=== PATIENT | female | born 1970 | race Caucasian/White ===

== ENCOUNTER 2018-08-29 08:43 | Inpatient (IN) | payer MEDICARE, BC ==
[2018-08-29] MEDS ORDERED: Acetaminophen 500 MG Tab PO ONE (10:00)
[2018-08-29] MEDS ORDERED: Gabapentin 300 MG Cap PO ONE (10:00)
[2018-08-29] MEDS ORDERED: Meropenem 500 MG SDV ONE (10:06)
[2018-08-29] MEDS ORDERED: Bupivacaine 0.5%/EPINEPHrine 1:200,000 50 ML MDV ONE (10:07)
[2018-08-29] MEDS ORDERED: Dextrose 5%-Lactated Ringers 1,000 ML IV SCH ×2 (10:30→17:00)
[2018-08-29] MEDS ORDERED: fentaNYL 250 MCG/5 ML SDV ONE (11:08)
[2018-08-29] MEDS ORDERED: Propofol 200 MG/20 ML SDV ONE (11:09)
[2018-08-29] MEDS ORDERED: Rocuronium 50 MG/5 ML Vial ONE (11:09)
[2018-08-29] MEDS ORDERED: Glycopyrrolate 0.2 MG/ML 5 ML MDV ONE (11:09)
[2018-08-29] MEDS ORDERED: Succinylcholine 200 MG/10 ML MDV ONE (11:09)
[2018-08-29] MEDS ORDERED: Ondansetron 4 MG/2 ML SDV ONE (11:09)
[2018-08-29] MEDS ORDERED: Dexamethasone 4 MG/ML SDV ONE (11:09)
[2018-08-29] MEDS ORDERED: Neostigmine Methylsulfate 1 MG/ML 5 ML Syringe ONE (11:09)
[2018-08-29] MEDS ORDERED: Levofloxacin/Dextrose 5%-Water 500 MG in Premix Bag 1 BAG IV ONE (11:30)
[2018-08-29] MEDS ORDERED: Ketamine 500 MG/5 ML MDV IV SCH (13:00)
[2018-08-29] MEDS ORDERED: Ketamine 50 MG in Sodium Chloride 0.9% 49.5 ML IV SCH (13:00)
[2018-08-29] MEDS ORDERED: Ropivacaine 38 ML, Dexamethasone 8 MG, EPINEPHrine 0.4 MG, Sodium Chloride 0.9% 39.6 ML NERVRT SCH ×4 (13:00)
[2018-08-29] MEDS ORDERED: Scopolamine 1.5 MG Transdermal Patch TRDERM SCH (13:30)
[2018-08-29] MEDS ORDERED: Levofloxacin 500 MG/20 ML SDV ONE (14:46)
[2018-08-29] MEDS ORDERED: Lactated Ringers 2,000 ML ONE (15:04)
[2018-08-29] MEDS ORDERED: Morphine PF 150 MG/30 ML PCA Syringe IV PRN (15:34)
[2018-08-29] MEDS ORDERED: Naloxone 0.4 MG/ML SDV IVPUSH PRN (15:34)
[2018-08-29] MEDS ORDERED: hydrOXYzine HCl 100 MG/2 ML SDV IM PRN ×2 (16:20→16:50)
[2018-08-29] MEDS ORDERED: 50% Dextrose in Water 50 ML Syringe IVPUSH PRN (16:50)
[2018-08-29] MEDS ORDERED: Labetalol 20 MG/4 ML Syringe IVPUSH PRN (16:50)
[2018-08-29] MEDS ORDERED: Glucagon,Human Recombinant 1 MG Vial IM PRN (16:50)
[2018-08-29] MEDS ORDERED: Metoclopramide 10 MG/2 ML SDV IVPUSH PRN (16:50)
[2018-08-29] MEDS ORDERED: Albuterol/Ipratropium 3.0-0.5 MG/3 ML Neb Soln INH PRN (16:50)
[2018-08-29] MEDS ORDERED: INSULIN PUMP SUBCUT SCH (17:00)
[2018-08-29] MEDS: Ondansetron 4 MG/2 ML SDV IVPUSH PRN (17:17)
[2018-08-29] MEDS: MVI, Adult with Vitamin K 10 ML, Thiamine 100 MG, Chromium/Copper/Mang/Selen/Zn 1 ML in... IV SCH ×4 (17:46)
[2018-08-29] MEDS: Pantoprazole 40 MG Vial IVPUSH SCH (17:46)
[2018-08-29] MEDS: Acetaminophen 325 MG Tab PO SCH ×2 (17:47→18:56)
[2018-08-29] MEDS: Heparin Sodium 5,000 Units/ML Vial SUBCUT SCH (20:48)
[2018-08-29] MEDS: Gabapentin 400 MG Cap PO SCH (20:49)
[2018-08-29] MEDS: Fluticasone-Salmeterol 232-14 MCG Powder Inhalent INH SCH (20:50)
[2018-08-29] MEDS: Acetaminophen Soln 650 MG/20.3 ML UD Cup PO SCH (20:57)
[2018-08-29] MEDS: Albuterol/Ipratropium 3.0-0.5 MG/3 ML Neb Soln INH SCH (20:58)
[2018-08-30] MEDS: Acetaminophen Soln 650 MG/20.3 ML UD Cup PO SCH ×4 (02:36→20:06)
[2018-08-30] MEDS ORDERED: Iohexol 647 MG/ML 50 ML SDV PO STA (02:48)
--- NOTE | 2018-08-30 04:10 | CRLCR ---
INDICATION: REVISON OF RNY BOWEL RESECTION HERNIA REPAIR INDICATION: Revision of Elma-en-Y, bowel resection, hernia repair TECHNIQUE: Abdomen modified upper GI three views, 2:59 a.m. and 3:17 a.m., COMPARISON: None FINDINGS: Oral contrast identified within the gastric pouch and proximal jejunum with no evidence of leakage. Contrast is noted to transit into distal jejunal and ileal bowel loops. IMPRESSION: Transit of oral contrast through the gastric pouch into distal jejunal and proximal ileal bowel loops with no evidence of leakage. Dictated by Luigi Woodward MD @ 08/30/2018 4:09:20 AM Dictated by: Luigi Woodward MD @ 08/30/2018 04:09:28 (Electronically Signed)
[2018-08-30] MEDS: Albuterol/Ipratropium 3.0-0.5 MG/3 ML Neb Soln INH SCH ×4 (07:29→20:12)
[2018-08-30] MEDS: Fluticasone-Salmeterol 232-14 MCG Powder Inhalent INH SCH ×2 (07:30→20:13)
[2018-08-30] MEDS: SCOPOLAMINE PATCH CHECK TOP SCH (08:33)
[2018-08-30] MEDS: Gabapentin 400 MG Cap PO SCH ×3 (08:33→20:11)
[2018-08-30] MEDS: Heparin Sodium 5,000 Units/ML Vial SUBCUT SCH ×2 (08:35→20:05)
[2018-08-30] MEDS ORDERED: Lactated Ringers 1,000 ML IV SCH (09:00)
[2018-08-30] MEDS: Aspirin 81 MG Tab.Chew PO SCH (09:48)
[2018-08-30] MEDS: Bisacodyl 5 MG Tab PO SCH ×2 (09:48→20:09)
[2018-08-30] MEDS: Propranolol 60 MG Cap.ER PO SCH (09:49)
[2018-08-30] MEDS: rOPINIRole 0.5 MG Tab PO SCH ×2 (09:56→20:14)
[2018-08-30] MEDS ORDERED: Topiramate 100 MG Tab PO SCH (10:00)
[2018-08-30] MEDS: diphenhydrAMINE 50 MG/ML SDV IVPUSH PRN (10:42)
[2018-08-30] MEDS: Levofloxacin/Dextrose 5%-Water 500 MG in Premix Bag 1 BAG IV SCH (13:34)
[2018-08-30] MEDS: Ondansetron 4 MG/2 ML SDV IVPUSH PRN (14:59)
[2018-08-30] MEDS: Pantoprazole 40 MG Vial IVPUSH SCH (16:42)
[2018-08-30] MEDS: MVI, Adult with Vitamin K 10 ML, Thiamine 100 MG, Chromium/Copper/Mang/Selen/Zn 1 ML in... IV SCH ×4 (17:43)
[2018-08-30] MEDS: Pravastatin 20 MG Tab PO SCH (20:11)
[2018-08-30] MEDS: Melatonin 3 MG Tab PO SCH (20:11)
[2018-08-30] MEDS: Mirtazapine 15 MG Tab PO SCH (20:13)
[2018-08-30] MEDS: Topiramate 100 MG Tab PO SCH (21:42)
[2018-08-31] MEDS: Acetaminophen Soln 650 MG/20.3 ML UD Cup PO SCH ×4 (02:54→19:45)
[2018-08-31] MEDS: diphenhydrAMINE 50 MG/ML SDV IVPUSH PRN ×2 (02:54→10:25)
[2018-08-31] MEDS: Heparin Sodium 5,000 Units/ML Vial SUBCUT SCH ×2 (07:32→19:45)
[2018-08-31] MEDS: Albuterol/Ipratropium 3.0-0.5 MG/3 ML Neb Soln INH SCH ×4 (07:35→20:55)
[2018-08-31] MEDS: Fluticasone-Salmeterol 232-14 MCG Powder Inhalent INH SCH ×2 (07:35→20:54)
--- NOTE | 2018-08-31 07:45 | PN ---
DATE OF SERVICE: 08/30/2018 The patient has been afebrile with stable vital signs. Blood sugars are running right around 200 and will switch her IV over to plain LR and decrease the rate to 100 mL an hour. Oral intake was fairly good. Will go to step 3 diet, have her decrease bowel stimulation, and restart some of her pertinent oral medication. Will leave the CASH SPECIALIST going for today. Gabino Jeffries MD /[id number]
[2018-08-31] MEDS: Ondansetron 4 MG/2 ML SDV IVPUSH PRN (08:19)
[2018-08-31] MEDS: rOPINIRole 0.5 MG Tab PO SCH ×2 (08:51→20:55)
[2018-08-31] MEDS: Propranolol 60 MG Cap.ER PO SCH (08:53)
[2018-08-31] MEDS: Topiramate 100 MG Tab PO SCH ×2 (08:53→20:53)
[2018-08-31] MEDS: Gabapentin 400 MG Cap PO SCH ×3 (08:54→20:53)
[2018-08-31] MEDS: Aspirin 81 MG Tab.Chew PO SCH (08:54)
[2018-08-31] MEDS: SCOPOLAMINE PATCH CHECK TOP SCH (08:56)
[2018-08-31] MEDS: Bisacodyl 5 MG Tab PO SCH ×2 (08:56→20:54)
[2018-08-31] MEDS ORDERED: Cyanocobalamin (Vitamin B12) 1,000 MCG/ML SDV IM ONE (09:00)
[2018-08-31] MEDS: oxyCODONE 5 MG Tab PO PRN ×4 (09:20→23:35)
[2018-08-31] MEDS: Levofloxacin/Dextrose 5%-Water 500 MG in Premix Bag 1 BAG IV SCH (13:29)
[2018-08-31] MEDS ORDERED: diphenhydrAMINE 25 MG Cap PO PRN (15:15)
[2018-08-31] MEDS ORDERED: Pantoprazole 40 MG Tab.CR PO SCH (16:30)
--- NOTE | 2018-08-31 16:36 | PN ---
DATE OF SERVICE: 08/31/2018 SUBJECTIVE: Claudia is postoperative day #2, her pain has been controlled. She is managing her own blood sugar. She has been up ambulating. Vital signs have been stable. Oral intake was 2660. Urine output was 1100. She has had 100% of breakfast lunch and dinner. REVIEW OF SYSTEMS: Remainder of review of systems negative for any pertinent positives and negatives. OBJECTIVE: GENERAL: Claudia is a pleasant 47-year-old female, alert, orientated, color pale. VITAL SIGNS: TPR 98.5, 81, 15, blood pressure 95/60. HEENT: Negative. NECK: Supple. HEART: Regular rate and rhythm. LUNGS: Clear. ABDOMEN: Dressings dry and intact. Abdominal binder is on. EXTREMITIES: Without peripheral edema. ASSESSMENT: Exploratory laparotomy with: 1. Revision of Elma-en-Y gastric bypass surgery (jejunojejunostomy). 2. Rectal sigmoid colon resection. 3. Repair of incarcerated incisional hernia for chronic small bowel intussusception at the jejunojejunostomy, intermittent sigmoid volvulus, and incarcerated incisional hernia. Date of surgery is 08/29/2018. Surgeon is Gabino Jeffries MD. PLAN: 1. Discontinue MACHINE SHORTHAND REPORTER and continuous pulse ox. 2. Oxycodone 5 mg every 6 hours p.r.n. pain. 3. Saline lock IV discontinue if infiltrates. 4. Dressing off may shower. 5. Work on good pulmonary function. 6. We will evaluate p.r.n. or in a.m. Sheridan Seymour PA-C /[id number]
[2018-08-31] MEDS: Promethazine 25 MG Tab PO SCH ×2 (16:46→19:44)
[2018-08-31] MEDS: Pantoprazole 40 MG Delayed-Release Granules 1 Packet PO SCH (16:46)
[2018-08-31] MEDS: Mirtazapine 15 MG Tab PO SCH (20:53)
[2018-08-31] MEDS: Melatonin 3 MG Tab PO SCH (20:53)
[2018-08-31] MEDS: Pravastatin 20 MG Tab PO SCH (20:55)
[2018-09-01] MEDS: Acetaminophen Soln 650 MG/20.3 ML UD Cup PO SCH ×4 (01:11→20:40)
[2018-09-01] MEDS: oxyCODONE 5 MG Tab PO PRN ×5 (04:05→21:10)
[2018-09-01] MEDS: Albuterol/Ipratropium 3.0-0.5 MG/3 ML Neb Soln INH SCH ×3 (07:12→14:32)
[2018-09-01] MEDS: Promethazine 25 MG Tab PO SCH ×4 (07:40→20:40)
[2018-09-01] MEDS: Heparin Sodium 5,000 Units/ML Vial SUBCUT SCH ×2 (07:48→20:40)
[2018-09-01] MEDS ORDERED: Polyethylene Glycol 3350 Powder 119 GM Bottle PO ONE (08:30)
[2018-09-01] MEDS: Fluticasone-Salmeterol 232-14 MCG Powder Inhalent INH SCH (09:16)
[2018-09-01] MEDS: Aspirin 81 MG Tab.Chew PO SCH (09:28)
[2018-09-01] MEDS: Bisacodyl 5 MG Tab PO SCH (09:29)
[2018-09-01] MEDS: Gabapentin 400 MG Cap PO SCH ×2 (09:30→13:33)
[2018-09-01] MEDS: rOPINIRole 0.5 MG Tab PO SCH (09:31)
[2018-09-01] MEDS: Topiramate 100 MG Tab PO SCH (09:32)
[2018-09-01] MEDS: Propranolol 60 MG Cap.ER PO SCH (09:33)
[2018-09-01] MEDS: Ondansetron 4 MG Tab.DIS PO PRN ×2 (10:17→20:38)
--- NOTE | 2018-09-01 11:37 | PN ---
DATE OF SERVICE: 09/01/2018 SUBJECTIVE: Claudia has been up ambulating. Vital signs have been stable. Pain has been controlled. Oral intake 2260 and urinary output is 1100. She has been managing her blood sugars with a sensor and her blood sugars average between 110 and 130. She continues to have the insulin pump. REVIEW OF SYSTEMS: Remainder of review of systems negative for any pertinent positives and negatives. OBJECTIVE: GENERAL: Claudia Cruz is a pleasant 47-year-old female. VITAL SIGNS: TPR 97.4, 79, 16. Blood pressure is 101/71. HEENT: Negative. NECK: Supple. HEART: Regular rate and rhythm. LUNGS: Clear. ABDOMEN: Dressings dry and intact. Abdominal binder is on. EXTREMITIES: Without peripheral edema. ASSESSMENT: Exploratory laparotomy with: 1. Revision of the Elma-en-Y gastric bypass surgery (jejunojejunostomy). 2. Rectosigmoid colon resection. 3. Repair of incarcerated incisional hernia for chronic small bowel intussusception at the jejunojejunostomy, intermittent sigmoid volvulus, and incarcerated incisional hernia. Date of surgery 08/29/2018. Surgeon, Gabino Jeffries MD. PLAN: 1. Discontinue Aquacel dressing. 2. MiraLAX 119 g in either Crystal Light or her beverage of choice sugar free. 3. We will evaluate p.r.n. or in a.m. Sheridan Seymour PA-C /[id number]
[2018-09-01] MEDS: Pantoprazole 40 MG Delayed-Release Granules 1 Packet PO SCH (16:34)
[2018-09-01] MEDS ORDERED: Lactulose Soln 10 GM/15 ML 15 ML UD Cup PO ONE (21:08)
[2018-09-01] MEDS ORDERED: Bisacodyl 10 MG Supp RECTAL PRN (21:09)
[2018-09-01] MEDS ORDERED: Sodium Phosphate,Monobasic/Sodium Phosphate,Dibasic Enema 133 ML Bottle RECTAL PRN (21:09)
[2018-09-02] MEDS: Ondansetron 4 MG Tab.DIS PO PRN ×2 (00:35→15:49)
[2018-09-02] MEDS: Albuterol/Ipratropium 3.0-0.5 MG/3 ML Neb Soln INH SCH ×5 (01:01→20:23)
[2018-09-02] MEDS: Bisacodyl 5 MG Tab PO SCH ×3 (01:01→20:18)
[2018-09-02] MEDS: Fluticasone-Salmeterol 232-14 MCG Powder Inhalent INH SCH ×3 (01:02→20:18)
[2018-09-02] MEDS: Mirtazapine 15 MG Tab PO SCH ×2 (01:03→20:17)
[2018-09-02] MEDS: rOPINIRole 0.5 MG Tab PO SCH ×3 (01:03→20:17)
[2018-09-02] MEDS: Gabapentin 400 MG Cap PO SCH ×4 (01:03→20:17)
[2018-09-02] MEDS: Melatonin 3 MG Tab PO SCH ×2 (01:03→20:17)
[2018-09-02] MEDS: Pravastatin 20 MG Tab PO SCH ×2 (01:04→20:17)
[2018-09-02] MEDS: Topiramate 100 MG Tab PO SCH ×3 (01:05→20:17)
[2018-09-02] MEDS: oxyCODONE 5 MG Tab PO PRN ×4 (01:05→15:51)
[2018-09-02] MEDS: Acetaminophen Soln 650 MG/20.3 ML UD Cup PO SCH ×4 (04:31→20:17)
[2018-09-02] MEDS: Promethazine 25 MG Tab PO SCH ×4 (07:27→20:17)
[2018-09-02] MEDS: Heparin Sodium 5,000 Units/ML Vial SUBCUT SCH ×2 (08:12→20:17)
[2018-09-02] MEDS: Lubiprostone 24 MCG Cap PO SCH ×2 (09:35→18:05)
[2018-09-02] MEDS: Aspirin 81 MG Tab.Chew PO SCH (09:35)
[2018-09-02] MEDS: Propranolol 60 MG Cap.ER PO SCH (09:36)
--- NOTE | 2018-09-02 09:55 | PN ---
CORRECTED DOS 09/06/2018 DATE OF SERVICE: 09/02/2018 SUBJECTIVE: Claudia is postop day 4. She did have a bowel movement last evening, but feels like she has not completely emptied out, does deal with chronic constipation. Vital signs have been stable. Pain has been managed. Activity has been good and oral intake 1860, urine output is 1200. Blood sugars she has been managing her own, have been ranging under 200, which she states is where she normally runs. She does have an insulin pump. OBJECTIVE: GENERAL: Claudia Cruz is a 47-year-old female. Color pale. Alert, orientated, talkative. VITAL SIGNS: TPR 97.3, 71, 18, blood pressure is 102/69. HEENT: Negative. NECK: Supple. HEART: Regular rate and rhythm. LUNGS: Clear. ABDOMEN: Stapled incision looks good. There is no redness or drainage. Abdominal binder is on. EXTREMITIES: Without peripheral edema. ASSESSMENT: Exploratory laparotomy with: 1. Revision of Elma-en-Y gastric bypass surgery (jejunostomy). 2. Rectosigmoid colon resection. 3. Repair of incarcerated incisional hernia for chronic small bowel intussusception of jejunostomy, intermittent sigmoid volvulus and incarcerated incisional hernia. Date of surgery, 08/29/2018. Surgeon, Gabino Jeffries MD. PLAN: 1. Amitiza 24 mcg p.o. b.i.d. 2. Communication order to check with insurance company to see if this medication is covered by her insurance plan and the co-pay is affordable. Continue to work on good pulmonary toilet. We will evaluate p.r.n. or in a.m. Sheridan Seymour PA-C /[id number]
[2018-09-02] MEDS: Pantoprazole 40 MG Delayed-Release Granules 1 Packet PO SCH (17:59)
[2018-09-03] MEDS: oxyCODONE 5 MG Tab PO PRN ×2 (00:07→07:52)
[2018-09-03] MEDS: Acetaminophen Soln 650 MG/20.3 ML UD Cup PO SCH ×2 (03:05→07:46)
[2018-09-03] MEDS: Ondansetron 4 MG Tab.DIS PO PRN (03:05)
[2018-09-03] MEDS: Fluticasone-Salmeterol 232-14 MCG Powder Inhalent INH SCH (07:31)
[2018-09-03] MEDS: Albuterol/Ipratropium 3.0-0.5 MG/3 ML Neb Soln INH SCH (07:31)
[2018-09-03] MEDS: Lubiprostone 24 MCG Cap PO SCH (07:45)
[2018-09-03] MEDS: Heparin Sodium 5,000 Units/ML Vial SUBCUT SCH (07:45)
[2018-09-03] MEDS: Promethazine 25 MG Tab PO SCH (07:45)
[2018-09-03] MEDS: Bisacodyl 5 MG Tab PO SCH (08:03)
[2018-09-03] MEDS: rOPINIRole 0.5 MG Tab PO SCH (08:03)
[2018-09-03] MEDS: Aspirin 81 MG Tab.Chew PO SCH (08:03)
[2018-09-03] MEDS: Propranolol 60 MG Cap.ER PO SCH (08:03)
[2018-09-03] MEDS: Gabapentin 400 MG Cap PO SCH (08:03)
[2018-09-03] MEDS: Topiramate 100 MG Tab PO SCH (08:04)
--- NOTE | 2018-09-05 10:56 | DISCH ---
FINAL DIAGNOSES: 1. Chronic small-bowel intussusception at jejunojejunostomy, status post Elma-en-Y gastric bypass. 2. Intermittent sigmoid volvulus. 3. Incarcerated incisional hernia. 4. Oral thrush. 5. Chronic constipation, likely related to diabetic-related autonomic nervous system abnormalities. SECONDARY DIAGNOSES: 1. Type 1 diabetes, on insulin pump. 2. History of gastroesophageal reflux disease. 3. History of arthritis involving dependent joints. 4. History of hyperlipidemia. 5. History of sleep apnea. OPERATIVE PROCEDURE: This was done on 08/29/2018, exploratory laparotomy with: 1. Revision of Elma-en-Y gastric bypass (jejunojejunostomy component). 2. Rectosigmoid colon resection with coloproctostomy. 3. Repair of incarcerated incisional hernia. SUMMARY: This is a 47-year-old female presenting with episodes of intermittent abdominal pain, which appear to be related to intussusception at the patient's jejunojejunostomy, status post gastric bypass. On the day of admission, the patient underwent an exploratory laparotomy through a small incision and revision of the jejunojejunostomy. The patient was also noted to have what appeared to be chronic sigmoid volvulus with the sigmoid twisted on itself with significant creasing and narrowing of the colon as it entered the twisted omega loop. This was therefore resected. She also had a small trocar incisional inguinal hernia which was incarcerated with preperitoneal fat in the midline which was repaired concurrently. Postoperatively, the patient was a little slow to get her bowels moving, but presently is doing well. She will be sent home on her usual medications plus Tylenol 1 g p.o. q.6 hours p.r.n. pain, oxycodone 5 mg p.o. q.4 hours p.r.n. pain #40, Diflucan 200 mg p.o. daily #3, and Amitiza 24 mcg p.o. b.i.d. #60. The patient was started on Amitiza by history as well as her hospital course. She appeared to have sluggish bowels. I suspect she probably has some autonomic abnormalities in regulation of her GI tract related to longstanding diabetes, and she will be started on the Amitiza 24 mcg p.o. b.i.d. as mentioned above, as well as continuing the previously prescribed stool softeners. She also has some thrush developing related to the antibiotic use and will be given a 3-day course of Diflucan. Followup will be with Sheridan Seymour at [facility] on 09/06/2018.
--- NOTE | 2018-09-05 13:59 | OR ---
DATE OF PROCEDURE: 08/29/2018 PREOPERATIVE DIAGNOSIS: Chronic small bowel intussusception at jejunojejunostomy. POSTOPERATIVE DIAGNOSES: 1. Chronic small bowel intussusception at jejunojejunostomy. 2. Intermittent sigmoid volvulus. 3. Incarcerated incisional hernia. OPERATIVE PROCEDURES: Exploratory laparotomy with: 1. Revision of jejunojejunostomy component of Elma-en-Y gastric bypass (90805). 2. Rectosigmoid colon resection with coloproctostomy (93631). 3. Repair of incarcerated incisional hernia (18736). ANESTHESIA: General. ASSISTANTS: Sheridan Seymour PA-C, and STEPHANY De La O. INDICATION FOR PROCEDURE: This is a 47-year-old status post Elma-en-Y gastric bypass presenting with symptoms suggestive of chronic partial small bowel obstruction. CT scan showed intussusception of the small bowel at the jejunojejunostomy, and that is where she is generally fairly uncomfortable, both per her report as well as clinical exam. She has had problems with bowel obstruction, done laparoscopically in the past. With the present recurrence, plan will be to proceed with a small open incision, which I think will give us a little more certainty in terms of the ability to close any mesenteric defects and such. The potential risks of the procedure including bleeding, infection, leaks from a GI tract closure, possible recurrence of bowel obstruction over time were all reviewed, and the patient wishes to proceed. DETAILS OF PROCEDURE: The patient was taken to the operating room, placed in a supine position. After general endotracheal anesthesia was induced, Goncalves catheter was inserted, and the abdomen prepped and draped. A midline incision from the umbilicus, roughly four fingerbreadths toward the xiphoid, was then made and carried down through the skin, subcutaneous tissue, and linea alba. At the upper end of the incision, the patient had a trocar site hernia which contained some incarcerated preperitoneal fat. This was excised and the hernia then was subsequently repaired at the time of closure of the midline fascia. Upon entering the peritoneal cavity, the patient was noted to have quite a bit of edema at the area of the jejunojejunostomy along with dilation of the Elma limb and pancreaticoduodenal limbs as they entered the anastomosis. The remainder of small bowel away from the anastomosis in all three directions was normal which would appear to confirm that we are dealing with a problem with this section of the jejunojejunostomy. Further exploration also revealed what appeared to be a chronic sigmoid volvulus with an omega loop- shaped sigmoid colon extending well up into right upper quadrant and rotated on itself. There was increase of narrowing at the proximal base of that twist consistent with a chronic sigmoid volvulus. Given this, the decision was made to proceed with a rectosigmoid colon resection as well as revision of the jejunojejunostomy. At this point, the three components of the jejunojejunostomy were divided with DIANNA staplers as we entered the anastomosis and the underlying mesentery at the section of bowel divided with mesenteric DIANNA loads and the specimen delivered from the field. GI tract continuity was then reestablished with anastomosis of the bowel that had been at the end of the Elma limb to the proximal end of the common limb with a [id number] enteroenterostomy with 60 mm followed by a 30 mm internal firing of the DIANNA loads and the common opening then closed transversely. The angles anastomosed and mesenteric defect approximated with some 3-0 Vicryl stitch and encased the mesenteric defect with 2-0 silk stitch. Roughly 20 cm distal to that, i.e., this was not a case for making significant limb length changes, the biliopancreatic limb was anastomosed to the bowel at that level with a single internal firing of the DIANNA 60 mm stapler, common opening closed transversely as well with a DIANNA stapler and the angles anastomosed and reinforced with some 3-0 Vicryl stitch and the mesentery with a 2-0 silk stitch. At this point, attention was taken to the sigmoid colon and volvulus. The volvulus was then divided proximally and distally with the proximal division in the mid sigmoid colon and distal division in the upper rectum, this being accomplished with DIANNA caprice as well, the underlying mesentery between the 2 points was divided with DIANNA mesenteric loads and the specimen then delivered from the field. The coloproctostomy was then accomplished with a fazh-cf-zduz anastomosis of the end of the sigmoid colon to the rectum again with 2 internal firings of the DIANNA staplers. In this case, both with 60 mm loads to maximize the size of the anastomosis and the common opening closed transversely with DIANNA caprice as well. The angles of anastomosis in this case were reinforced with 3-0 Vicryl stitch as was the mesenteric defect in this case. At this point, no further problems were noted. The abdomen was irrigated with antibiotic- containing saline solution. The omentum came down over the incision satisfactorily in that no mesh distraction away from the incision would be required as far as postoperative adhesions and the midline fascia was approximated with #2 Vicryl stitch, which included repair of the incisional hernia and the subcutaneous tissue closed with 2 layers of 3-0 and 4-0 Vicryl stitch deep and then caprice for the skin. Dressing was applied. The patient was taken to the recovery room in satisfactory condition. Physician fish hatchery assistant, Sheridan Seymour, played an essential role in assisting in this case, helping to position the patient, retract structures as needed, as well as suturing and cutting sutures when indicated. Her presence improved patient safety and decreased operative time. Gabino Jeffries MD /[id number]
== END 2018-09-03 10:15 | disposition home or self-care (01) | DRG 330 ==
LOC: JP.MS 09:42 → JP.SDS 09:42 → EDSTATUS 12:45 → JP.MS 16:00
PROVIDERS: ADMIT Surgery; ATTEND Surgery
PROC: 0DBN0ZZ Excision of Sigmoid Colon, Open Approach (ICD-10-PCS; principal; 2018-08-29)
PROC: 0WQF0ZZ Repair Abdominal Wall, Open Approach (ICD-10-PCS; 2018-08-29)
PROC: 0DBP0ZZ Excision of Rectum, Open Approach (ICD-10-PCS; 2018-08-29)
PROC: 0DBA0ZZ Excision of Jejunum, Open Approach (ICD-10-PCS; 2018-08-29)
PROC: 0D1N0ZP Bypass Sigmoid Colon to Rectum, Open Approach (ICD-10-PCS; 2018-08-29)
DX: K56.1 Intussusception (principal); K43.0 Incisional hernia with obstruction, without gangrene; B37.0 Candidal stomatitis; K56.2 Volvulus; Z98.84 Bariatric surgery status; Z98.0 Intestinal bypass and anastomosis status; E10.9 Type 1 diabetes mellitus without complications; Z79.4 Long term (current) use of insulin; Z96.41 Presence of insulin pump (external) (internal); E03.9 Hypothyroidism, unspecified; E78.5 Hyperlipidemia, unspecified; J44.9 Chronic obstructive pulmonary disease, unspecified; Z87.891 Personal history of nicotine dependence; Z90.49 Acquired absence of other specified parts of digestive tract; Z88.1 Allergy status to other antibiotic agents; K59.09 Other constipation; E10.43 Type 1 diabetes mellitus with diabetic autonomic (poly)neuropathy; M19.90 Unspecified osteoarthritis, unspecified site; Z87.19 Personal history of other diseases of the digestive system
CPT/HCPCS: 36415; 74240; 80053; 82962; 83735; 83880; 84100; 85025; 88302; 88307; 94640; A9270-GY; C9113; J0171; J0330; J1100; J1200; J1644; J1956; J2185; J2270; J2405; J2704; J2710; J2795; J3010; J3410; J3411; J3420; J3490; J7042; J7050; J7120; J7620-GY; Q9967

== ENCOUNTER 2019-08-14 07:01 | Inpatient (IN) | payer BC, MEDICARE ==
[~2019-08-14 07:01] MED LIST: Acetaminophen 500 MG Tab PO ONE; Bupivacaine 0.5%/EPINEPHrine 1:200,000 50 ML MDV ONE; Dexamethasone 4 MG/ML SDV ONE; Glycopyrrolate 0.2 MG/ML 5 ML MDV ONE; Meropenem 500 MG SDV ONE; Neostigmine Methylsulfate 1 MG/ML 5 ML Syringe ONE; Ondansetron 4 MG/2 ML SDV ONE; Propofol 200 MG/20 ML SDV ONE; Rocuronium 50 MG/5 ML Vial ONE; Succinylcholine 200 MG/10 ML MDV ONE; fentaNYL 250 MCG/5 ML SDV ONE
[2019-08-14] MEDS ORDERED: Acetaminophen 500 MG Tab PO ONE (07:10)
[2019-08-14] MEDS ORDERED: Dextrose 5%-Lactated Ringers 1,000 ML IV SCH ×2 (07:40→12:15)
[2019-08-14] MEDS ORDERED: Ketamine 50 MG in Sodium Chloride 0.9% 49.5 ML IV SCH (08:00)
[2019-08-14] MEDS ORDERED: Ketamine 500 MG/5 ML MDV IV SCH (08:00)
[2019-08-14] MEDS ORDERED: Ropivacaine 40 ML, dexAMETHasone 8 MG, EPINEPHrine 0.4 MG, Sodium Chloride 0.9% 37.6 ML NERVRT SCH ×4 (08:00)
[2019-08-14] MEDS ORDERED: Scopolamine 1.5 MG Transdermal Patch TRDERM ONE (08:10)
[2019-08-14] MEDS ORDERED: Doxycycline 100 MG in Sodium Chloride 0.9% 100 ML IV ONE (08:30)
[2019-08-14] MEDS ORDERED: Albuterol/Ipratropium 3.0-0.5 MG/3 ML Neb Soln NEB ONE (08:30)
[2019-08-14] MEDS ORDERED: Lidocaine 1% with EPINEPHrine 1:100,000 50 ML MDV ONE (09:19)
[2019-08-14] MEDS ORDERED: Bupivacaine 0.5% 50 ML MDV ONE (09:19)
[2019-08-14] MEDS ORDERED: diphenhydrAMINE 50 MG/ML SDV IVPUSH PRN (10:25)
[2019-08-14] MEDS ORDERED: diphenhydrAMINE 25 MG Cap PO PRN (10:25)
[2019-08-14] MEDS ORDERED: Ondansetron 4 MG/2 ML SDV IVPUSH PRN ×2 (10:25→12:16)
[2019-08-14] MEDS ORDERED: Naloxone 0.4 MG/ML SDV IVPUSH PRN (10:25)
[2019-08-14] MEDS: HYDROmorphone/Normal Saline 15 MG/30 ML PCA IV PRN ×2 (10:52→11:31)
[2019-08-14] MEDS ORDERED: Naloxone 0.4 MG/ML SDV IV PRN (12:08)
[2019-08-14] MEDS ORDERED: hydrOXYzine HCL 100 MG/2 ML SDV IM PRN (12:18)
[2019-08-14] MEDS ORDERED: Albuterol/Ipratropium 3.0-0.5 MG/3 ML Neb Soln INH PRN (12:23)
[2019-08-14] MEDS ORDERED: tiZANidine 4 MG Tab PO PRN (12:24)
[2019-08-14] MEDS ORDERED: INSULIN PUMP SUBCUT SCH (12:30)
[2019-08-14] MEDS: Prochlorperazine 10 MG Tab PO SCH ×2 (13:46→16:39)
[2019-08-14] MEDS: Meropenem 500 MG in Sodium Chloride 0.9% 50 ML IV SCH ×3 (13:55→20:29)
[2019-08-14] MEDS: Lactated Ringers 1,000 ML IV SCH ×2 (13:59→20:33)
[2019-08-14] MEDS ORDERED: Levothyroxine 100 MCG, Levothyroxine 25 MCG PO SCH ×2 (14:00)
[2019-08-14] MEDS: Sodium Ferric Gluconate Cmplex 250 MG in Sodium Chloride 0.9% 100 ML IV SCH (14:35)
[2019-08-14] MEDS: Gabapentin 400 MG Cap PO SCH ×2 (15:25→20:29)
[2019-08-14] MEDS: Pantoprazole 40 MG Tab.CR PO SCH (15:25)
[2019-08-14] MEDS: Albuterol/Ipratropium 3.0-0.5 MG/3 ML Neb Soln INH SCH ×2 (15:28→20:27)
[2019-08-14] MEDS: Propranolol 60 MG Cap.ER PO SCH (20:28)
[2019-08-14] MEDS: Aspirin 81 MG Tab.EC PO SCH (20:28)
[2019-08-14] MEDS: Mirtazapine 15 MG Tab PO SCH (20:29)
[2019-08-14] MEDS: Levothyroxine 100 MCG, Levothyroxine 25 MCG PO SCH ×2 (20:30)
[2019-08-14] MEDS: Topiramate 100 MG Tab PO SCH (20:30)
[2019-08-14] MEDS: tiZANidine 4 MG Tab PO SCH (20:31)
[2019-08-14] MEDS ORDERED: Promethazine 25 MG Tab PO PRN (20:47)
[2019-08-14] MEDS ORDERED: Melatonin 3 MG Tab PO PRN (20:48)
[2019-08-14] MEDS ORDERED: Mirtazapine 15 MG Tab PO SCH (21:00)
[2019-08-14] MEDS: diphenhydrAMINE 25 MG Cap PO PRN (21:01)
[2019-08-15] MEDS: Meropenem 500 MG in Sodium Chloride 0.9% 50 ML IV SCH (02:48)
[2019-08-15] MEDS: diphenhydrAMINE 25 MG Cap PO PRN (02:51)
[2019-08-15] MEDS: Lactated Ringers 1,000 ML IV SCH (05:13)
[2019-08-15] MEDS: Pantoprazole 40 MG Tab.CR PO SCH (07:29)
[2019-08-15] MEDS: Prochlorperazine 10 MG Tab PO SCH ×3 (07:29→17:04)
[2019-08-15] MEDS: Albuterol/Ipratropium 3.0-0.5 MG/3 ML Neb Soln INH SCH ×4 (07:47→21:49)
[2019-08-15] MEDS: Fluticasone-Salmeterol 232-14 MCG Powder Inhalent INH SCH ×2 (07:49→21:49)
[2019-08-15] MEDS: Gabapentin 400 MG Cap PO SCH ×3 (08:40→21:50)
[2019-08-15] MEDS: Topiramate 100 MG Tab PO SCH ×2 (08:40→21:51)
[2019-08-15] MEDS ORDERED: Aspirin 81 MG Tab.EC PO SCH (09:00)
[2019-08-15] MEDS ORDERED: Lactated Ringers 1,000 ML IV SCH (09:30)
[2019-08-15] MEDS: HYDROmorphone 2 MG Tab PO PRN ×4 (09:50→21:49)
[2019-08-15] MEDS: Acetaminophen 325 MG Tab PO SCH ×3 (09:50→21:52)
[2019-08-15] MEDS: Sodium Ferric Gluconate Cmplex 250 MG in Sodium Chloride 0.9% 100 ML IV SCH (14:26)
[2019-08-15] MEDS ORDERED: Sennosides 8.6 MG Tab PO SCH (21:00)
[2019-08-15] MEDS: Aspirin 81 MG Tab.EC PO SCH (21:50)
[2019-08-15] MEDS: Mirtazapine 15 MG Tab PO SCH (21:51)
[2019-08-15] MEDS: Levothyroxine 100 MCG, Levothyroxine 25 MCG PO SCH ×2 (21:51)
[2019-08-15] MEDS: tiZANidine 4 MG Tab PO SCH (21:51)
[2019-08-15] MEDS: Propranolol 60 MG Cap.ER PO SCH (21:56)
[2019-08-16] MEDS: diphenhydrAMINE 25 MG Cap PO PRN (01:40)
[2019-08-16] MEDS: HYDROmorphone 2 MG Tab PO PRN ×3 (01:40→09:47)
[2019-08-16] MEDS: Acetaminophen 325 MG Tab PO SCH ×2 (03:14→10:50)
[2019-08-16] MEDS: Prochlorperazine 10 MG Tab PO SCH ×2 (07:14→10:52)
[2019-08-16] MEDS: Pantoprazole 40 MG Tab.CR PO SCH (07:14)
[2019-08-16] MEDS: Albuterol/Ipratropium 3.0-0.5 MG/3 ML Neb Soln INH SCH ×2 (07:26→11:03)
[2019-08-16] MEDS: Fluticasone-Salmeterol 232-14 MCG Powder Inhalent INH SCH (07:27)
[2019-08-16] MEDS: Gabapentin 400 MG Cap PO SCH (08:22)
[2019-08-16] MEDS: Topiramate 100 MG Tab PO SCH (08:23)
--- NOTE | 2019-08-16 14:54 | PN ---
DATE OF SERVICE: 08/15/2019 The patient is postop day #1 from open incisional hernia and umbilical hernia repair with mesh. Clinically, she has done well overnight. She is controlling her blood sugars reasonably well with the insulin pump and ongoing monitor. Will switch over to oral pain medication today, have her get in the shower. She may be ready for discharge home tomorrow. Gabino Jeffries MD /[id number]
--- NOTE | 2019-08-17 03:42 | DISCH ---
ADMISSION DIAGNOSES: Incisional hernia, status post Elma-en-Y gastric bypass surgery, low ferritin, unspecified surgical malabsorption, B12 deficiency, chronic obstructive pulmonary disease, dependent edema, depression disorder, diabetes type 1, insulin pump, gastroparesis, gastroesophageal reflux disease, hypoglycemia, migraine headaches, joint pain, sleep apnea. DISCHARGE DIAGNOSES: Exploratory laparotomy with repair of incarcerated incisional hernia with mesh, reduction of small bowel volvulus and closure of internal hernia and placement of Interceed mesh for incarcerated incisional umbilical hernia and focal small bowel volvulus. DATE OF SURGERY: 08/14/2019. SURGEON: Gabino Jeffries MD. HISTORY: Claudia Cruz is a 48-year-old female with the above chief complaint. After preoperative evaluation and discussion of possible risks and possible complications, she wished to proceed with surgical procedure. HOSPITAL COURSE: Claudia had her surgery on 08/14/2019. She had no operative complications. On postoperative day #1, her IV was decreased to 60 mL per hour. She was able to shower. ASSESSMENT TECHNICIAN was discontinued. She was started on oral pain medicine and she tolerated a step 4 gastric bypass diet. On postoperative day #2, her pain was well managed. Activity was good and she was able to be discharged to home. During her hospitalization, she did receive iron gluconate on day of surgery and postop day #1 for a ferritin of 19. PHYSICAL EXAMINATION: GENERAL: Claudia Cruz is a pleasant 48-year-old female. VITAL SIGNS: Height 5 feet 11 inches, weight 149 pounds. BMI is 20.9. TPR 97.7, 69, 16. Blood pressure 101/61. HEENT: Negative. NECK: Supple. HEART: Regular rate and rhythm. LUNGS: Clear. ABDOMEN: Dressings dry and intact. EXTREMITIES: Aquacel dressing on in extremities without peripheral edema. DISPOSITION: Discharged to home. CONDITION: Stable and improving. FOLLOWUP: Followup appointment with Sheridan Seymour PA-C, on 08/25/2019 at 9 a.m.. NEW PRESCRIPTIONS: Dilaudid 2 mg every 4 hours p.r.n. pain #42, Tylenol 650 mg q.6 h. p.r.n. pain, albuterol sulfate (ProAir RespiClick) 2 puffs inhalation every 2 hours p.r.n. shortness of breath, aspirin 81 mg oral at bedtime, Tessalon Perles 100 mg oral 3 times a day p.r.n. cough, Biotin 10 mg oral daily, calcium citrate with vitamin D 1 twice daily, vitamin B12 25 mcg sublingual daily, Vitron-C 1 tablet oral daily, Breo Ellipta 200/25 mcg 1 inhalation daily, Neurontin 400 mg p.o. t.i.d., insulin 65 units subcu per pump daily, levothyroxine 125 mcg oral at bedtime, melatonin 5 mg oral at bedtime, mirtazapine (Remeron) 15 mg oral at bedtime, omeprazole 40 mg oral daily, Pravachol 20 mg oral at bedtime, Compazine 10 mg oral 3 times a day, promethazine 25 mg rectal every 12 hours and Phenergan 25 oral every 4 hours p.r.n. nausea, Inderal LA 120 mg oral at bedtime, Maxalt-SYNCHRO ASSEMBLER 10 mg sublingual p.r.n. headache, senna 34.4 mg oral at bedtime, topiramate 20 mg oral twice daily, vitamin B complex 1 oral daily, Requip 1 mg oral at bedtime, tizanidine 1 to 2 mg oral at bedtime. DIET: On diabetic diet step 4, drink 8 to 10 glasses of water a day. ACTIVITY: No lifting greater than 10 pounds for 6 weeks. Other activity: Walk at least 6 times daily inside your home. Driving after discharge: Do not drive for 1 week and while on pain medication. Shower/bathing: May shower. DISCHARGE INSTRUCTIONS: Notify provider if any fever, increased pain, nausea, or vomiting. Keep site clean and dry. Wear abdominal binder for 6 weeks and then as tolerated. Wear rolled up pressure dressing over hernia site for 2 weeks. Use incentive spirometer 10 times every hour while awake.
--- NOTE | 2019-08-21 13:14 | OR ---
DATE OF PROCEDURE: 08/14/2019 SURGEON: Gabino Jeffries MD PREOPERATIVE DIAGNOSIS: Incisional hernia. POSTOPERATIVE DIAGNOSES: 1. Incarcerated incisional hernia. 2. Non-incarcerated umbilical hernia. 3. Focal small bowel volvulus. 4. Extensive intraabdominal adhesions. OPERATIVE PROCEDURES: Exploratory laparotomy with: 1. Repair of incarcerated incisional hernia with mesh (72656, 82024). 2. Repair of non-incarcerated umbilical hernia (70556). 3. Reduction of small bowel volvulus and closure of internal hernia (10943). 4. Placement of Interceed mesh to limit recurrent adhesion formation between the pelvic and abdominal wu and underlying viscera (19482). ANESTHESIA: General. DUCK FARMER: Sheridan Seymour PA-C INDICATIONS FOR PROCEDURE: This is a 48-year-old status post previous Elma-en-Y gastric bypass, presenting with an incisional hernia located in the epigastric area. The plan is to proceed with repair of this with an open approach, and given the fairly wide opening at the fascial level, mesh will be employed. Potential risks of the procedure including bleeding, infection, injury to underlying viscera, problems with the hernia recurring or the mesh becoming infected were all reviewed, and the patient wishes to proceed. DETAILS OF PROCEDURE: The patient was taken to the operating room. After general endotracheal anesthesia was induced, a Goncalves catheter was inserted, and the abdomen was prepped and draped. The upper midline incision was then reused and carried down through the skin and subcutaneous tissue, and down onto the hernia sac. The hernia sac was then dissected down to the level of the fascial edges and then opened and the hernia sac excised. There was some incarcerated component of the hernia, including some omentum and some of the transverse colon. These were dissected free from the hernia sac. The patient was noted also to have a smaller umbilical hernia, which was not incarcerated as well. Inspection of the small bowel at this point showed a focal small bowel volvulus with rotation of a portion of the jejunojejunostomy, as well as Elma limb and common limbs, in a plane posterior to the Elma limb mesentery. This was reduced and that area then closed off with some 2-0 silk stitch. At that point, a Ventrio ST hernia patch was selected. This was 15.8 x 17.8 cm hernia mesh. At roughly 5 cm intervals around its circumference, 2-0 Vicryl sutures were placed on the polypropylene side of the mesh, and the mesh was then soaked in antibiotic- containing saline solution. At the site where the sutures will be pulled up, small stab wounds were placed. The lower half of the mesh was then placed and sutures pulled up. Underlying this, an Interceed mesh was placed from the pelvis up onto the abdominal wall to limit recurrent adhesion formation. The remaining sutures were then pulled up, thus fixing the mesh in general position. The underside of the mesh was then fixed to the abdominal wall with titanium tacking screws, and the area was once again irrigated with antibiotic- containing saline solution. Primary fascial closure was then accomplished with a #2 Vicryl stitch, the subcutaneous tissue with 4-0 Vicryl stitch deep, then additional 4-0 Vicryl subdermal stitch, and caprice were then applied. The patient had received bilateral transversus abdominis plane blocks and also had the incision injected with some 0.5% Marcaine with 1% lidocaine. The patient was taken to the recovery room in satisfactory condition. Physician producer assistant, Sheridan Seymour, played an essential role assisting in this case, helping to position the patient, retract structures as needed, as well as suturing and cutting sutures when indicated, as well as applying caprice. Gabino Jeffries MD /[id number]
== END 2019-08-16 12:15 | disposition home or self-care (01) | DRG 223 ==
LOC: JP.SDSSCHI 07:01 → JP.SDS 07:01 → EDSTATUS 09:45 → JP.MS 10:30
PROVIDERS: ADMIT Surgery; ATTEND Surgery
PROC: 0DS80ZZ Reposition Small Intestine, Open Approach (ICD-10-PCS; principal; 2019-08-14)
PROC: 0WUF0JZ Supplement Abdominal Wall with Synthetic Substitute, Open Approach (ICD-10-PCS; 2019-08-14)
PROC: 3E0M05Z Introduction of Adhesion Barrier into Peritoneal Cavity, Open Approach (ICD-10-PCS; 2019-08-14)
PROC: 0DQV0ZZ Repair Mesentery, Open Approach (ICD-10-PCS; 2019-08-14)
DX: K43.0 Incisional hernia with obstruction, without gangrene (principal); K42.9 Umbilical hernia without obstruction or gangrene; E03.9 Hypothyroidism, unspecified; G43.909 Migraine, unspecified, not intractable, without status migrainosus; E78.5 Hyperlipidemia, unspecified; J44.9 Chronic obstructive pulmonary disease, unspecified; E53.8 Deficiency of other specified B group vitamins; K56.2 Volvulus; K66.0 Peritoneal adhesions (postprocedural) (postinfection); K21.9 Gastro-esophageal reflux disease without esophagitis; E10.40 Type 1 diabetes mellitus with diabetic neuropathy, unspecified; F17.210 Nicotine dependence, cigarettes, uncomplicated; F32.9 Major depressive disorder, single episode, unspecified; G47.30 Sleep apnea, unspecified; Z90.49 Acquired absence of other specified parts of digestive tract; Z98.890 Other specified postprocedural states; Z98.51 Tubal ligation status; Z79.51 Long term (current) use of inhaled steroids; Z79.899 Other long term (current) drug therapy; Z79.82 Long term (current) use of aspirin; Z88.0 Allergy status to penicillin; Z88.1 Allergy status to other antibiotic agents; Z98.84 Bariatric surgery status; Z88.8 Allergy status to other drugs, medicaments and biological substances
CPT/HCPCS: 82962; 88302; 94640; 94762; A9270-GY; C1713; C1781; J0171; J0330; J1100; J1170; J1200; J2020; J2185; J2405; J2704; J2710; J2795; J2916; J3010; J3490; J7050; J7120; J7121; J7620-GY; Q0164

== ENCOUNTER 2023-11-17 06:29 | Day surgery (SDC) | payer MEDICARE ==
[2023-11-17] MEDS: Lactated Ringers 1,000 ML IV SCH (07:03)
[2023-11-17] MEDS ORDERED: Sodium Chloride 0.9% 1,000 ML IV SCH (07:15)
[2023-11-17] MEDS ORDERED: Propofol 200 MG/20 ML SDV ONE (07:24)
[2023-11-17] MEDS ORDERED: fentaNYL 50 MCG/ML SDV ONE (07:24)
[2023-11-17] MEDS ORDERED: Midazolam 1 MG/ML 2 ML SDV ONE (07:24)
[2023-11-17] MEDS: MVI, Adult with Vitamin K 10 ML, Thiamine 200 MG, Zinc/Copper/Manganese/Selenium 1 ML i... IV ONE (08:16)
[2023-11-17] MEDS: Cyanocobalamin (Vitamin B12) 1,000 MCG/ML SDV IM ONE (09:08)
== END 2023-11-17 10:24 | disposition home or self-care (01) ==
LOC: JP.SDS 06:29
PROVIDERS: ATTEND Surgery
DX: R13.10 Dysphagia, unspecified (principal); K31.89 Other diseases of stomach and duodenum; K21.9 Gastro-esophageal reflux disease without esophagitis; J44.9 Chronic obstructive pulmonary disease, unspecified; E78.5 Hyperlipidemia, unspecified; F17.200 Nicotine dependence, unspecified, uncomplicated
CPT/HCPCS: C1726; J2250; J2704; J3010; J3411; J3420; J3490; J7120